=== PATIENT | female | born 1980 | race Asian ===

== ENCOUNTER 2018-07-31 07:19 | Day surgery (SDC) | payer OTHER ==
[2018-07-31] MEDS ORDERED: LIDOCAINE 4% SOLUTION 50 ML BTL (08:48)
[2018-07-31] MEDS ORDERED: MIDAZOLAM 1 MG/ML 2 ML INJ ×2 (09:24)
[2018-07-31] MEDS ORDERED: FENTAnyl 50 MCG/ML VIAL (09:24)
== END 2018-07-31 12:12 | disposition home or self-care (01) ==
LOC: GIL 07:19
DX: R10.10 Upper abdominal pain, unspecified (principal); K20.8 Other esophagitis; K29.00 Acute gastritis without bleeding
CPT/HCPCS: 43239; 88305; 88312